=== PATIENT | female | born 1950 | race Caucasian/White ===

== ENCOUNTER 2016-11-12 08:53 | Day surgery (SDC) | payer MEDICARE ==
[~2016-11-12] VITALS: Ht 177.8 cm; Wt 100.7 kg
[~2016-11-12 08:53] MED LIST: AMOXICILLIN500 MG OR; AMOXICILLIN500 MG PO; ASPIRIN81 MG PO; ATENOLOL25 MG OR; ATENOLOL25 MG PO; AUGMENTIN500TAB PO; BENADRYL 50MG C50 MG PO; CALCIUM600 M2 PO; CEFTIN250 MG PO; CETIRIZINE10 MG PO; EPIPEN 2-PAK0.3 MG IM; FLONASE NASAL50 MCG; GLUCOSAMIN PO; HYDROCORTISO2.51 EX; LIPITOR10 M1 PO; MECLIZINE25 MG PO; MEDDOSEPAK PO; MUCINEX600 MG PO; MULTIVITAMIN PO; PEPCID20 MG PO; PHENERGAN12.5 MG/TA PO; PREMARIN VAG0.625 MG; PREMARIN0.625 M1 VA; PRILOSEC40 MG PO; SOLU-MEDROL125 MG IM; TESSALON PER100 MG PO; TRIAMCINOLON0.11 EX
[2016-11-12 10:44] VITALS: BP 127/69
== END 2016-11-12 10:52 | disposition home or self-care (01) ==
LOC: ENDO 08:53
PROVIDERS: ATTEND Internal Medicine Gastroenterology
PROC: 0DBN8ZX Excision of Sigmoid Colon, Via Natural or Artificial Opening Endoscopic, Diagnostic (ICD-10-PCS; principal; 2016-11-12)
PROC: 0DBL8ZX Excision of Transverse Colon, Via Natural or Artificial Opening Endoscopic, Diagnostic (ICD-10-PCS; 2016-11-12)
DX: Z12.11 Encounter for screening for malignant neoplasm of colon (principal); K64.4 Residual hemorrhoidal skin tags; K64.8 Other hemorrhoids; D12.3 Benign neoplasm of transverse colon; D12.5 Benign neoplasm of sigmoid colon; K57.30 Diverticulosis of large intestine without perforation or abscess without bleeding; K21.9 Gastro-esophageal reflux disease without esophagitis; R13.10 Dysphagia, unspecified; R10.13 Epigastric pain; E78.00 Pure hypercholesterolemia, unspecified; Z80.0 Family history of malignant neoplasm of digestive organs

== ENCOUNTER 2016-11-26 13:56 | Observation (INO) | payer MEDICARE ==
[~2016-11-26] VITALS: Ht 177.8 cm; Wt 101.4 kg
[2016-11-26 15:07] LABS: HEMATOCRIT 40.1 % (37.0-47.0); HEMOGLOBIN 13.3 g/dl (12.0-16.0); IMMATURE GRANULOCYTES 0.5 % (0.0-1.0); MEAN CELL VOLUME 90.1 fL CALC (80.0-100.0); MEAN CORPUSCULAR HGB 29.9 pG CALC (26.0-32.0); MEAN CORPUSCULAR HGB CONC 33.2 g/L CALC (32.0-36.0); NEUT# 4.85 thou/uL (2.00-7.15); RED BLOOD COUNT 4.45 mill/uL (4.20-5.60); RED CELL DISTRI WIDTH 13.2 % (11.5-15.5)
[2016-11-26 15:53] LABS: ALBUMIN 4.3 g/dL (3.2-5.0); ALKALINE PHOSPHATASE 117 u/l (38-126); ANION GAP 15 (6-22 (CALC)); BILIRUBIN, TOTAL 0.4 mg/dL (0.0-1.4); BUN 17 mg/dL (8-23); BUN/CREATININE RATIO 27 (12-20 (CALC)); CALCIUM 9.4 mg/dL (8.4-10.2); CARBON DIOXIDE 25 mmol/l (22-30); CHLORIDE 108 mmol/l (95-108); CREATININE 0.6 mg/dL (0.5-1.0); GFR > 60 ML/MIN (>=60 (CALC)); GFR FOR AFR.AMER. > 60 ML/MIN (>=60 (CALC)); GLUCOSE 129 mg/dL (82-115); POTASSIUM 4.1 mmol/l (3.5-5.1); SGOT/AST 105 u/l (9-36); SGPT/ALT 234 u/l (11-66); SODIUM 143 mmol/l (137-146)
[2016-11-26 16:03] LABS: MYOGLOBIN 20 ng/mL (0 - 62)
[2016-11-26 16:31] LABS: AMYLASE 77 u/l (30-110); LIPASE 70 u/l (23-300)
[2016-11-26 18:06] LABS: URINE BILIRUBIN - DIPSTICK NEGATIVE (NEGATIVE); URINE BLOOD DIPSTICK NEGATIVE (NEGATIVE); URINE CLARITY CLEAR; URINE COLOR YELLOW; URINE GLUCOSE - DIPSTICK NEGATIVE (NEGATIVE); URINE KETONE NEGATIVE (NEGATIVE); URINE LEUK ESTERASE NEGATIVE (NEGATIVE); URINE NITRITE - DIPSTICK NEGATIVE (Negative); URINE PROTEIN - DIPSTICK NEGATIVE (NEG-TRACE); URINE UROBILINOGEN - DIPSTICK 0.2 E.U./dL (0.2)
[2016-11-26] MEDS ORDERED: DUREZOL0.05 % OU ×2 (18:26→22:02)
[2016-11-26] MEDS ORDERED: ILEVRO0.3 % OU ×2 (18:27→22:02)
[2016-11-26] MEDS ORDERED: BESIVANCE0.6 % OU ×2 (18:27→22:03)
[2016-11-26 19:00] VITALS: BP 150/75
[2016-11-26 19:50] VITALS: BP 106/55
[2016-11-26] MEDS ORDERED: MULT VITAMIN PO (21:36)
[2016-11-26] MEDS ORDERED: ASPIRIN ADULT L81 M2 (21:51)
[2016-11-26] MEDS ORDERED: ATENOLOL25 MG PO (21:54)
[2016-11-26] MEDS ORDERED: CALCIUM600 M1 PO (21:54)
[2016-11-26] MEDS ORDERED: PRILOSEC20 MG PO (21:56)
[2016-11-26] MEDS ORDERED: LIPITOR10 M1 PO (21:57)
[2016-11-26] MEDS ORDERED: PREMARIN0.625 MG/G (21:58)
[2016-11-26] MEDS ORDERED: ALL DAY ALLERGY10 M1 (22:00)
[2016-11-27 04:16] VITALS: BP 132/71
[2016-11-27 06:42] LABS: HEMATOCRIT 39.7 % (37.0-47.0); HEMOGLOBIN 12.8 g/dl (12.0-16.0); IMMATURE GRANULOCYTES 0.5 % (0.0-1.0); MEAN CELL VOLUME 91.9 fL CALC (80.0-100.0); MEAN CORPUSCULAR HGB 29.6 pG CALC (26.0-32.0); MEAN CORPUSCULAR HGB CONC 32.2 g/L CALC (32.0-36.0); NEUT# 4.11 thou/uL (2.00-7.15); RED BLOOD COUNT 4.32 mill/uL (4.20-5.60); RED CELL DISTRI WIDTH 13.5 % (11.5-15.5)
[2016-11-27 06:59] LABS: ALKALINE PHOSPHATASE 104 u/l (38-126); AMYLASE 47 u/l (30-110); ANION GAP 13 (6-22 (CALC)); BILIRUBIN, TOTAL 0.4 mg/dL (0.0-1.4); BUN 15 mg/dL (8-23); BUN/CREATININE RATIO 20 (12-20 (CALC)); CALCIUM 9.2 mg/dL (8.4-10.2); CARBON DIOXIDE 29 mmol/l (22-30); CHLORIDE 107 mmol/l (95-108); CREATININE 0.8 mg/dL (0.5-1.0); GFR > 60 ML/MIN (>=60 (CALC)); GFR FOR AFR.AMER. > 60 ML/MIN (>=60 (CALC)); GLUCOSE 91 mg/dL (82-115); POTASSIUM 4.4 mmol/l (3.5-5.1); SGOT/AST 67 u/l (9-36); SGPT/ALT 193 u/l (11-66); SODIUM 145 mmol/l (137-146); TOTAL PROTEIN 6.3 g/dL (6.3-8.2)
[2016-11-27 07:28] VITALS: BP 115/68
[2016-11-27 07:35] VITALS: BP 114/73
[2016-11-27 11:30] VITALS: BP 126/54
[2016-11-27 15:38] VITALS: BP 140/83
[2016-11-27 19:35] VITALS: BP 114/73
[2016-11-28 00:30] VITALS: BP 99/56
[2016-11-28 04:09] VITALS: BP 96/60
[2016-11-28 04:27] LABS: HEMATOCRIT 39.7 % (37.0-47.0); IMMATURE GRANULOCYTES 0.6 % (0.0-1.0); MEAN CELL VOLUME 91.3 fL CALC (80.0-100.0); MEAN CORPUSCULAR HGB 29.9 pG CALC (26.0-32.0); MEAN CORPUSCULAR HGB CONC 32.7 g/L CALC (32.0-36.0); NEUT# 3.96 thou/uL (2.00-7.15); RED BLOOD COUNT 4.35 mill/uL (4.20-5.60); RED CELL DISTRI WIDTH 13.3 % (11.5-15.5)
[2016-11-28 04:44] LABS: ALBUMIN 3.9 g/dL (3.2-5.0); ALKALINE PHOSPHATASE 101 u/l (38-126); ANION GAP 15 (6-22 (CALC)); BILIRUBIN, TOTAL 0.4 mg/dL (0.0-1.4); BUN 15 mg/dL (8-23); BUN/CREATININE RATIO 21 (12-20 (CALC)); CALCIUM 9.2 mg/dL (8.4-10.2); CARBON DIOXIDE 28 mmol/l (22-30); CHLORIDE 107 mmol/l (95-108); CREATININE 0.7 mg/dL (0.5-1.0); GFR > 60 ML/MIN (>=60 (CALC)); GFR FOR AFR.AMER. > 60 ML/MIN (>=60 (CALC)); GLUCOSE 92 mg/dL (82-115); POTASSIUM 4.2 mmol/l (3.5-5.1); SGOT/AST 45 u/l (9-36); SGPT/ALT 161 u/l (11-66); SODIUM 145 mmol/l (137-146); TOTAL PROTEIN 6.4 g/dL (6.3-8.2)
[2016-11-28] MEDS ORDERED: PHENERGAN25 MG/TAB PO ×2 (08:48→09:27)
[2016-11-28] MEDS ORDERED: ANTIVERT PO (08:48)
[2016-11-28] MEDS ORDERED: ANTIVERT12.5 MG PO (09:27)
== END 2016-11-28 08:52 | disposition home or self-care (01) ==
LOC: ENPENDDIS → ED 13:56 → ED-I 16:29 → ED 17:14 → MS2 17:15
PROVIDERS: Emergency Medicine; ADMIT Internal Medicine Geriatric Medicine; ATTEND Internal Medicine Geriatric Medicine
DX: R42 Dizziness and giddiness (principal); H93.12 Tinnitus, left ear; I10 Essential (primary) hypertension; E78.5 Hyperlipidemia, unspecified; K21.9 Gastro-esophageal reflux disease without esophagitis; K80.20 Calculus of gallbladder without cholecystitis without obstruction; M19.90 Unspecified osteoarthritis, unspecified site; Z96.1 Presence of intraocular lens; Z98.42 Cataract extraction status, left eye
CPT/HCPCS: G0378

== ENCOUNTER 2017-10-28 17:53 | Emergency (ER) | payer MEDICARE ==
[~2017-10-28] VITALS: Ht 177.8 cm; Wt 89.0 kg
[~2017-10-28 17:53] MED LIST changes: +ALL DAY ALLERGY10 M1; +ANTIVERT PO; +ANTIVERT12.5 MG PO; +ASPIRIN ADULT L81 M2; +BESIVANCE0.6 % OU; +CALCIUM600 M1 PO; +DUREZOL0.05 % OU; +ILEVRO0.3 % OU; +MULT VITAMIN PO; +PHENERGAN25 MG/TAB PO; +PREMARIN0.625 MG/G; +PRILOSEC20 MG PO
[2017-10-28] MEDS ORDERED: ZOFRAN ODT4 MG PO (18:16)
[2017-10-28] MEDS ORDERED: ANTIVERT PO (18:16)
[2017-10-28] MEDS ORDERED: VALIUM5 MG PO (18:16)
[2017-10-28] MEDS ORDERED: RA OMEPRAZOLE20 MG PO (18:21)
[2017-10-28 18:24] VITALS: BP 132/82
== END 2017-10-28 18:31 | disposition home or self-care (01) ==
LOC: ED 17:53
DX: R42 Dizziness and giddiness (principal); I10 Essential (primary) hypertension

== ENCOUNTER → 2018-08-05 | Outpatient (REF) | payer MEDICARE ==
[~2018-08-05] MED LIST changes: +RA OMEPRAZOLE20 MG PO; +VALIUM5 MG PO; +ZOFRAN ODT4 MG PO
[2018-08-05 08:44] LABS: HEMATOCRIT 39.8 % (37.0-47.0); HEMOGLOBIN 12.8 g/dl (12.0-16.0); IMMATURE GRANULOCYTES 0.2 % (0.0-5.0); MEAN CORPUSCULAR HGB 29.9 pG CALC (26.0-32.0); MEAN CORPUSCULAR HGB CONC 32.2 g/L CALC (32.0-36.0); NEUT# 2.53 thou/uL (2.00-7.15); RED BLOOD COUNT 4.28 mill/uL (4.20-5.60); RED CELL DISTRI WIDTH 13.2 % (11.5-15.5)
[2018-08-05 08:53] LABS: ALBUMIN 4.2 g/dL (3.2-5.0); ALKALINE PHOSPHATASE 90 u/l (38-126); ANION GAP 13 (6-22 (CALC)); BILIRUBIN, TOTAL 0.5 mg/dL (0.0-1.4); BUN 20 mg/dL (8-23); BUN/CREATININE RATIO 26 (12-20 (CALC)); CARBON DIOXIDE 28 mmol/l (22-30); CHLORIDE 106 mmol/l (95-108); CREATININE 0.7 mg/dL (0.5-1.0); GFR > 60 ML/MIN (>=60 (CALC)); GFR FOR AFR.AMER. > 60 ML/MIN (>=60 (CALC)); POTASSIUM 4.5 mmol/l (3.5-5.1); SGOT/AST 26 u/l (9-36); SODIUM 143 mmol/l (137-146); TOTAL PROTEIN 6.4 g/dL (6.3-8.2)
== END | disposition home or self-care (01) ==
LOC: LAB 08:02
PROVIDERS: ATTEND Internal Medicine Geriatric Medicine
DX: R10.9 Unspecified abdominal pain (principal)

== ENCOUNTER → 2018-08-07 | Outpatient (REF) | payer MEDICARE | END | disposition home or self-care (01) | LOC: CT 12:17 | PROVIDERS: ATTEND Internal Medicine Geriatric Medicine | DX: R10.9 Unspecified abdominal pain (principal) ==

== ENCOUNTER 2020-07-03 17:21 | Observation (INO) | payer MEDICARE ==
[~2020-07-03] VITALS: Ht 175.3 cm; Wt 100.0 kg
[2020-07-03 18:25] LABS: HEMATOCRIT 42.5 % (37.0-47.0); HEMOGLOBIN 13.4 g/dl (12.0-16.0); IMMATURE GRANULOCYTES 0.3 % (0.0-5.0); MEAN CELL VOLUME 92.8 fL CALC (80.0-100.0); MEAN CORPUSCULAR HGB 29.3 pG CALC (26.0-32.0); MEAN CORPUSCULAR HGB CONC 31.5 g/dL CAL (32.0-36.0); NEUT# 4.28 thou/uL (2.00-7.15); RED BLOOD COUNT 4.58 mill/uL (4.20-5.60); RED CELL DISTRI WIDTH 13.4 % (11.5-15.5)
[2020-07-03 18:44] LABS: ALBUMIN 4.7 g/dL (3.2-5.0); ALKALINE PHOSPHATASE 102 u/l (38-126); BILIRUBIN, TOTAL 0.4 mg/dL (0.0-1.4); BUN 16 mg/dL (8-23); BUN/CREATININE RATIO 20 (12-20 (CALC)); CARBON DIOXIDE 28 mmol/l (22-30); CHLORIDE 103 mmol/l (95-108); CREATININE 0.8 mg/dL (0.5-1.0); GFR > 60 ML/MIN (>=60 (CALC)); GFR FOR AFR.AMER. > 60 ML/MIN (>=60 (CALC)); SGOT/AST 45 u/l (9-36); SODIUM 140 mmol/l (137-146); TOTAL PROTEIN 7.4 g/dL (6.3-8.2)
[2020-07-03 18:48] LABS: ANION GAP 13 (6-22 (CALC)); POTASSIUM 3.6 mmol/l (3.5-5.1)
[2020-07-03 18:49] LABS: ACT PARTIAL THROMBO TIME 23.4 SECONDS (20.0-32.5); INTERNATIONAL NORMALIZED RATIO 0.9 RATIO (0.7-1.3); PROTHROMBIN TIME 9.4 SECONDS (9.0-12.5)
[2020-07-03 18:56] LABS: MYOGLOBIN 56 ng/mL (0 - 62)
[2020-07-03 18:59] LABS: D-DIMER 0.47 mg/L (0.19-0.60)
[2020-07-03 19:09] LABS: URINE BILIRUBIN - DIPSTICK NEGATIVE (NEGATIVE); URINE BLOOD DIPSTICK NEGATIVE (NEGATIVE); URINE COLOR YELLOW; URINE GLUCOSE - DIPSTICK NEGATIVE (NEGATIVE); URINE KETONE NEGATIVE (NEGATIVE); URINE LEUK ESTERASE NEGATIVE (NEGATIVE); URINE NITRITE - DIPSTICK NEGATIVE (Negative); URINE PH 6.5 (4.5-8.0); URINE PROTEIN - DIPSTICK NEGATIVE (NEG-TRACE); URINE SPECIFIC GRAVITY <=1.005; URINE UROBILINOGEN - DIPSTICK 0.2 E.U./dL (0.2)
[2020-07-03] MEDS ORDERED: GLUCOSAMINE & C1 CAP PO (19:15)
[2020-07-03 20:30] VITALS: BP 140/78
[2020-07-03 21:00] VITALS: BP 112/59
[2020-07-03 22:00] VITALS: BP 110/50
[2020-07-03 23:00] VITALS: BP 109/51
[2020-07-04] VITALS (22 sets, daily range): BP systolic 91–174; BP diastolic 39–97
[2020-07-04 07:11] LABS: HEMATOCRIT 36.8 % (37.0-47.0); HEMOGLOBIN 11.8 g/dl (12.0-16.0); IMMATURE GRANULOCYTES 0.4 % (0.0-5.0); MEAN CELL VOLUME 93.9 fL CALC (80.0-100.0); MEAN CORPUSCULAR HGB 30.1 pG CALC (26.0-32.0); MEAN CORPUSCULAR HGB CONC 32.1 g/dL CAL (32.0-36.0); NEUT# 3.78 thou/uL (2.00-7.15); RED BLOOD COUNT 3.92 mill/uL (4.20-5.60); RED CELL DISTRI WIDTH 13.6 % (11.5-15.5)
[2020-07-04 07:36] LABS: ALKALINE PHOSPHATASE 79 u/l (38-126); ANION GAP 7 (6-22 (CALC)); BILIRUBIN, TOTAL 0.5 mg/dL (0.0-1.4); BUN 18 mg/dL (8-23); BUN/CREATININE RATIO 24 (12-20 (CALC)); CALCULATED LDLCHOLESTEROL 78 mg/dL (62-129 (CALC)); CARBON DIOXIDE 27 mmol/l (22-30); CHLORIDE 108 mmol/l (95-108); CHOLESTEROL HDL RATIO 2.4 (<4.4 (CALC)); CREATININE 0.8 mg/dL (0.5-1.0); GFR > 60 ML/MIN (>=60 (CALC)); GFR FOR AFR.AMER. > 60 ML/MIN (>=60 (CALC)); HDL CHOLESTEROL 63 mg/dL (>=40); POTASSIUM 4.1 mmol/l (3.5-5.1); SGOT/AST 30 u/l (9-36); SODIUM 138 mmol/l (137-146); TOTAL CHOLESTEROL 151 mg/dl (0-199); TOTAL TRIGLYCERIDES 54 mg/dl (30-149); VLDL CHOLESTROL 11 mg/dl (0-48 (CALC))
[2020-07-04 07:38] LABS: ALBUMIN 3.5 g/dL (3.2-5.0); TOTAL PROTEIN 5.9 g/dL (6.3-8.2)
[2020-07-05] VITALS (7 sets, daily range): BP systolic 127–156; BP diastolic 53–76
[2020-07-05] MEDS ORDERED: AMLODIPINE BESYL5 MG PO (08:21)
[2020-07-05] MEDS ORDERED: TOPROL XL25 M1 PO (08:21)
[2020-07-05] MEDS ORDERED: XARELTO20 MG PO (08:40)
== END 2020-07-05 11:20 | disposition home or self-care (01) ==
LOC: ED 17:21 → ED-I 19:13 → ICU 19:14 → ED 19:14 → ICU 19:14
PROVIDERS: Nurse Practitioner; ADMIT Internal Medicine; ATTEND Internal Medicine
DX: I48.91 Unspecified atrial fibrillation (principal); I10 Essential (primary) hypertension; E78.5 Hyperlipidemia, unspecified; M79.671 Pain in right foot; R25.2 Cramp and spasm; Z20.822 Contact with and (suspected) exposure to COVID-19
CPT/HCPCS: J1650

== ENCOUNTER 2020-08-09 13:36 | Inpatient (IN) | payer MEDICARE ==
[~2020-08-09] VITALS: Ht 175.3 cm; Wt 98.0 kg
[~2020-08-09 13:36] MED LIST changes: +AMLODIPINE BESYL5 MG PO; +GLUCOSAMINE & C1 CAP PO; +TOPROL XL25 M1 PO; +XARELTO20 MG PO
--- NOTE | 2020-08-09 15:05 | NUR ---
ERIKA AMBULATED TO [facility] AWAITIG ROOM ASSIGNMENT SANDI ACKNOWLEDGED WAIT TIME AND MD INFORMED OF PATIENT STATUS
--- NOTE | 2020-08-09 16:40 | NUR ---
PT AMBUALTED TO ROOM WITH STEADY GAIT
[2020-08-09 17:19] LABS: HEMATOCRIT 39.6 % (37.0-47.0); HEMOGLOBIN 12.7 g/dl (12.0-16.0); IMMATURE GRANULOCYTES 0.9 % (0.0-5.0); MEAN CELL VOLUME 92.1 fL CALC (80.0-100.0); MEAN CORPUSCULAR HGB 29.5 pG CALC (26.0-32.0); MEAN CORPUSCULAR HGB CONC 32.1 g/dL CAL (32.0-36.0); NEUT# 2.67 thou/uL (2.00-7.15); RED BLOOD COUNT 4.3 mill/uL (4.20-5.60); RED CELL DISTRI WIDTH 13.2 % (11.5-15.5)
--- NOTE | 2020-08-09 17:40 | NUR ---
PT WAS GIVEN CARDIZEM AND HEARTRATE CONTINUED TO BE ELEVATED AND IRREGULAR. NOTIFIED AND SHE STATES PENDING DRIP ORDER
[2020-08-09 17:42] LABS: ALBUMIN 3.9 g/dL (3.2-5.0); ALKALINE PHOSPHATASE 100 u/l (38-126); ANION GAP 12 (6-22 (CALC)); BILIRUBIN, TOTAL 0.5 mg/dL (0.0-1.4); BUN 15 mg/dL (8-23); BUN/CREATININE RATIO 19 (12-20 (CALC)); CARBON DIOXIDE 25 mmol/l (22-30); CHLORIDE 104 mmol/l (95-108); CREATININE 0.8 mg/dL (0.5-1.0); GFR > 60 ML/MIN (>=60 (CALC)); GFR FOR AFR.AMER. > 60 ML/MIN (>=60 (CALC)); POTASSIUM 3.6 mmol/l (3.5-5.1); SGOT/AST 34 u/l (9-36); SODIUM 136 mmol/l (137-146); TOTAL PROTEIN 6.6 g/dL (6.3-8.2)
[2020-08-09 17:44] LABS: ACT PARTIAL THROMBO TIME 28.1 SECONDS (20.0-32.5); INTERNATIONAL NORMALIZED RATIO 1.1 RATIO (0.7-1.3); PROTHROMBIN TIME 11.3 SECONDS (9.0-12.5)
--- NOTE | 2020-08-09 18:44 | NUR ---
MD AT BEDSIDE TO DISCUSS RESULTS AND PLAN OF CARE.
--- NOTE | 2020-08-09 18:58 | NUR ---
REPORT RECEIVED FROM FARSHAD JEAN.
--- NOTE | 2020-08-09 19:10 | NUR ---
INTRODUCED SELF TO PT. CARDIZEM GTT INFUSING @ 15MG/HR WITHOUT DIFFICULTY. CARDIAC RHYTHM SHOWING AFIB 130S.
--- NOTE | 2020-08-09 19:38 | NUR ---
PT MEDICATED WITH LOPRESSOR IV PER EDP ORDER. HR RANGING FROM 130-140S AFIB. TOLERATED MEDICATION ADMINISTRATION WELL. ADVISED OF CONT WAIT FOR ADMIT TO ICU. VERABLIZED UNDERSTANDING. DENIES ANY NEEDS. FLOW NURSE IN PLACE.
--- NOTE | 2020-08-09 20:00 | NUR ---
PT ASSISTED TO BSC WITH 1000 ML OF YELLOW URINE PRODUCED.
--- NOTE | 2020-08-09 20:25 | NUR ---
Admission Note Report Given to: MAIKEL RN Transported by: Wheelchair X Stretcher Transported with: X Nurse Transporter X Patent IV O2 X Multicraft Operator Location: X ICU MS2 PT REPORT PROVIDED TO MAIKEL JEAN. TRANSPORTED TO ICU VIA STRETCHER IN WITH FLAP PRESSER IN PLACE.
[2020-08-09 20:40] LABS: URINE BILIRUBIN - DIPSTICK NEGATIVE (NEGATIVE); URINE BLOOD DIPSTICK NEGATIVE (NEGATIVE); URINE COLOR YELLOW; URINE GLUCOSE - DIPSTICK NEGATIVE (NEGATIVE); URINE KETONE NEGATIVE (NEGATIVE); URINE LEUK ESTERASE NEGATIVE (NEGATIVE); URINE NITRITE - DIPSTICK NEGATIVE (Negative); URINE PH 5.5 (4.5-8.0); URINE PROTEIN - DIPSTICK NEGATIVE (NEG-TRACE); URINE SPECIFIC GRAVITY <=1.005; URINE UROBILINOGEN - DIPSTICK 0.2 E.U./dL (0.2)
[2020-08-09 20:45] VITALS: BP 123/74
--- NOTE | 2020-08-09 20:45 | NUR ---
RECEIVED INTO ICU BED 1 AT 2034. PATIENT ARRIVED FROM ER VIA STRETCHER, AMBULATED FROM STRETCHER TO BED WITH STABLE STANCE AND STEADY GAIT. PLACED ON CHIEF ADMINISTRATIVE OFFICER SHOWING AFIB, VARIABLE HR. RESP NON-LABORED. LUNGS CLEAR. NO PERIPHERAL EDEMA, PULSES INTACT. IV IN RAC WITH CARDIAZEM GTT INFUSING AT 15 MG/HR AND NS AT 20 ML/HR. SALINE LOCK INTACT IN LH, BOTH IV SITES BENIGN. DISCUSSED PLAN OF CARE. DENIES NEEDS AT THIS TIME. CALL GOMES IN REACH.
[2020-08-09 21:00] VITALS: BP 95/62
[2020-08-09 21:15] VITALS: BP 93/53
[2020-08-09 21:30] VITALS: BP 100/50
--- NOTE | 2020-08-09 21:35 | NUR ---
DR GONSALO BAPTISTE IN FOR CONDITION UPDATE.
[2020-08-09 22:00] VITALS: BP 99/62
--- NOTE | 2020-08-09 22:00 | NUR ---
VSS. CONTINUES IN AFIB WITH VARIABLE HR, 90'S-110.
[2020-08-09 23:00] VITALS: BP 119/53
[2020-08-10] VITALS (22 sets, daily range): BP systolic 85–142; BP diastolic 44–67
--- NOTE | 2020-08-10 | NUR ---
SLEEPING. VSS. CARDIZEM GTT CONTINUES TO INFUSE AT 15 MG/HR. REMAINS IN AFIB, HR VARIABLE 90'S-110'S.
--- NOTE | 2020-08-10 02:00 | NUR ---
RESTING WITH EYES CLSOED. RESP NON-LABORED. VSS. CARDIZEM GTT INFUSING AT 15 MG/HR. CONTNIUES IN AFIB ON MONITOR.
--- NOTE | 2020-08-10 04:00 | NUR ---
NO CHANGES TO REPORT. VSS. CONTINUES IN AFIB.
--- NOTE | 2020-08-10 06:00 | NUR ---
REMAINS IN AFIB. CARDIZEM GTT CONTINUES AT 15 MG/HR. IV LOPRESSOR HELD FOR BP 96/52.
--- NOTE | 2020-08-10 07:00 | NUR ---
pt awake in bed; no apparent distress noted; pt offers no complaints other than feeling "drained"; denies pain; no n/v noted at this time; assessment completed; pt alert and oriented; resp even and unlabored; lungs clear; skin color wnl; ra; hr irreg; strong pulses; no edema noted; afib on monitor; abd soft with bs present; no bm noted per ticket writer; pt admits to having "a bug" that has caused diarrhea (currently no diarhhea); pt admits to voiding without pain or burning; no urine to inspect at this time; bsc; #18 patent to rac with cardizem gtt at 15 mg/hr and ns infusing without complication; #22 to saline locked; no redness or edema noted at sites; plan of care/ am meds explained; call light within reach; will continue to monitor
--- NOTE | 2020-08-10 08:00 | NUR ---
awake in bed; offers no complaints; iv intact and patent; cardizem gtt cont at 15 mg/hr; afib on monitor; call light within reach; will continue to monitor
--- NOTE | 2020-08-10 10:20 | NUR ---
awake in bed; offers no complaints; iv intact; afib on monitor; call light within reach; will continue to monitor
--- NOTE | 2020-08-10 11:11 | NUR ---
keno writer spoke with Dr Steinberg for clarification in regards to Torpol, Lopressor scheduled and Cardizem; orders received to administer Toprol and wean cardizem gtt
--- NOTE | 2020-08-10 11:13 | NUR ---
Dr Jeff present at bedside to assess pt and discuss plan of care
--- NOTE | 2020-08-10 12:20 | NUR ---
pt awake in bed; afib on monitor; iv intact and patent; cardizem gtt at 15 mg/hr; pt offers no complaints; call light within reach; will continue to monitor
--- NOTE | 2020-08-10 14:03 | NUR ---
awake in bed; offers no complaints; iv intact and patent; afib on monitor; call light within reach; will continue to monitor
--- NOTE | 2020-08-10 16:05 | NUR ---
pt resting in bed; no apparent distress noted; pt offers no complaints; iv intact and patent; no redness or edema noted at site; afib on monitor; cardizem gtt cont at 15mg/hr; call light within reach; will continue to monitor
--- NOTE | 2020-08-10 18:14 | NUR ---
pt awake sitting on the side of bed eating dinner; no apparent distress noted; pt offers no complaints; iv intact and patent; cardizem gtt cont at 15mg/hr; no redness or edema noted at site; call light within reach
--- NOTE | 2020-08-10 19:20 | NUR ---
RESTING IN BED WTACHING TV. DENIES ANY PAIN OR DISCOMFORTS. RESP NON-LABORED. LUNGS CLEAR. NO PERIPHERAL EDEMA, PULSES INTACT. IV IN RAC WITH NS INFUSING AT 20 ML/HR AND CARDIZEM GTT DECREASED AT THIS TIME TO 10 MG/HR. WEB MARKETING ASSISTANT CONTINUES IN AFIB, HR 80'S-90'S. DISCUSSED PLAN OF CARE. ADAM SALEH AT THIS TIME. CALL GOMES IN REACH.
--- NOTE | 2020-08-10 20:36 | NUR ---
MEDICATED WITH XANAX ORDERED FOR ANXIETY.
--- NOTE | 2020-08-10 22:41 | NUR ---
TYLENOL 650 MG PO GIVEN FOR C/O LEGS ACHING.
[2020-08-11] VITALS (25 sets, daily range): BP systolic 86–119; BP diastolic 40–78
--- NOTE | 2020-08-11 | NUR ---
RESTING WITH EYES CLOSED. RESP NON-LABORED. VSS.
--- NOTE | 2020-08-11 02:00 | NUR ---
SLEEPS SOUNDLY. VSS. AFIB ON MONITOR.
--- NOTE | 2020-08-11 04:00 | NUR ---
REMAINS IN AFIB. VSS. RESP NON-LABORED.
--- NOTE | 2020-08-11 05:00 | NUR ---
CONTINUES IN AFIB ON MONITOR, HR 70'S-80'S. CARDIZEM GTT DECREASED TO 5 MG/HR.
--- NOTE | 2020-08-11 05:54 | NUR ---
NO CHANGES TO REPORT. VSS. AFIB ON MONITOR. CARDIZEM GTT INFUSING AT 5 MG/HR.
--- NOTE | 2020-08-11 06:45 | NUR ---
REPORT RECEIVED FROM MAIKEL JEAN. CARE ASSUMED.
--- NOTE | 2020-08-11 07:00 | NUR ---
PT RESTING IN BED AWAKE. PT IS ALERT AND ORIENTED X3. SHIFT ASSESSMENT COMPLETED AT THIS TIME. IV PATENT X2. BP 99/48. TURNED CARDIZEM FROM 5MG TO OFF FOR HYPOTENSION. AM MEDS GIVEN PER AUG. PT REMAINS IN AFIB ON MONITOR. PT THEN ASSISTED UP TO RECLINER AT BEDSIDE. CALL LIGHT IN REACH WILL CONTINUE TO MONITOR.
--- NOTE | 2020-08-11 07:15 | NUR ---
DR HILL NOTIFIED OF CARDIOLOGY CONSULT
--- NOTE | 2020-08-11 08:48 | NUR ---
DR BRUSH AT BEDSIDE.
--- NOTE | 2020-08-11 10:00 | NUR ---
PT SEATED UP IN RECLINER. RESP ARE EVEN AND UNLABORED. NO DISTRESS NOTED. CALL LIGHT IN REACH. WILL CONTINUE TO MONITOR.
--- NOTE | 2020-08-11 12:15 | NUR ---
PT SITTING UP IN BED EATING LUNCH AT THIS TIME. NO DISTRESS NOTED. CALL LIGHT IN REACH. WILL CONTINUE TO MONITOR.
--- NOTE | 2020-08-11 12:30 | NUR ---
LAB AT BEDSIDE AT THIS TIME
--- NOTE | 2020-08-11 12:40 | NUR ---
JORGE BOYER APRN AT BEDSIDE AT THIS TIME
[2020-08-11 13:13] LABS: ANION GAP 12 (6-22 (CALC)); BUN 14 mg/dL (8-23); BUN/CREATININE RATIO 20 (12-20 (CALC)); CARBON DIOXIDE 24 mmol/l (22-30); CHLORIDE 107 mmol/l (95-108); CREATININE 0.7 mg/dL (0.5-1.0); GFR > 60 ML/MIN (>=60 (CALC)); GFR FOR AFR.AMER. > 60 ML/MIN (>=60 (CALC)); MAGNESIUM 1.8 mg/dL (1.6-2.3); POTASSIUM 4.1 mmol/l (3.5-5.1); SODIUM 139 mmol/l (137-146)
--- NOTE | 2020-08-11 13:55 | NUR ---
PT MEDICATION WITH DIGOXIN PO PER AUG. MEDICATION EXPLAINED. PT VERBALIZED UNDERSTANDING
--- NOTE | 2020-08-11 16:30 | NUR ---
ASSUMED CARE. PT RESTING IN SEMI FOWLERS POSITION. RESPIRATIONS ARE EVEN AND UNLABORED ON ROOM AIR, NO DISTRESS NOTED. AFIB 109 PER CARDIAC MONITORING. PT DENIES OF ANY PAINS OR DISCOMFORTS AT THIS TIME. ALL SAFETY PRECAUTIONS ARE IN PLACE WITH CALL LIGHT IN REACH . WILL CONTINUE TO MONITOR.
--- NOTE | 2020-08-11 18:15 | NUR ---
PT RESTING IN HIGH FOLWERS POSITION EATING DINNER. REPSIRATIONS ARE EVEN AND UNLABORED ON ROOM AIR. AFIB PER CARDIAC MONITORING. PT DENIES OF ANY PAINS OR DISCOMFORTS. ALL SAFETY PRECAUTIONS ARE IN PLACE WITH CALL LIGHT IN REACH. WILL CONTINUE TO MONITOR.
--- NOTE | 2020-08-11 19:31 | NUR ---
RECEIEVED REPORT FOR THIS PT AND IN BED WITH EYES OPEN AND ABLE TO MAKE NEEDS KNOWN.. ATRIAL FIBRILLATION NOTED UP THE 140'S. PT DENIES SOB AND DENIES PAIN OR DISCOMFORT. CONTINENT OF B/B. WILL NOTIFY MD OF ABNORMAL HEART RATE/RYHTHM. WILL CONTINUR TO OBSERVE
[2020-08-12] VITALS (11 sets, daily range): BP systolic 93–127; BP diastolic 47–64
--- NOTE | 2020-08-12 | NUR ---
PT IN BED WITH EYES CLOSED. NO S/S OF DISTRES NOTED. RESPIRATIN EVEN AND NON LABORED. DENIES PAIN OR DISCOMFORT. UP TO TOILET WITH NO ASSIST NEEDED. CALL LIGHT WITHIN REACH. WILL CONTINUE TO OBSERVE
--- NOTE | 2020-08-12 05:11 | NUR ---
PT IN BED WITH EYES CLOSED. CONTINUES WITH ATRIAL FIB NOTED WITH NO COMPLICATIONS NOTED. TOLERATING FLUIDS WELL. UP TO TOILET WITH NO ASSIST NEEDED. CALL IGHT IS WITHIN REACH ANDBED IN LOW POSITIO. WILL CONTINUE TO OBSERVE
--- NOTE | 2020-08-12 06:45 | NUR ---
REPORT RECEIVED FROM JANE JEAN. CARE ASSUMED.
--- NOTE | 2020-08-12 07:00 | NUR ---
PT RESTING IN BED AWAKE. PT IS ALERT AND ORIENTED X3. SHIFT ASSESSMENT COMPLETED AT THIS TIME. IV PATENT X2. CALL LIGHT IN REACH. WILL CONTINUE TO MONITOR.
--- NOTE | 2020-08-12 07:30 | NUR ---
PT CONVERTED BACK TO SINUS RHYTHM ON MONITOR AT THIS TIME.
--- NOTE | 2020-08-12 09:20 | NUR ---
PT RESTING IN BED AT THIS TIME. NO DISTRESS NOTED. VSS ON MONITOR. CALLLIGHT IN REACH. WILL CONTINUE TO MONITOR.
--- NOTE | 2020-08-12 10:06 | NUR ---
DR BRUSH AT BEDSIDE AT THIS TIME.
--- NOTE | 2020-08-12 10:49 | NUR ---
VIDEOTAPE RECORDING ENGINEER AT BEDSIDE AT THIS TIME.
--- NOTE | 2020-08-12 11:46 | NUR ---
PT SET UP FOR NOON MEAL AT THIS TIME. NO DISTRESS NOTED. CALL LIGHT IN REACH. WILL CONTINUE TO MONITOR.
[2020-08-12] MEDS ORDERED: TOPROL XL50 MG PO (13:13)
[2020-08-12] MEDS ORDERED: ROPINIROLE HCL0.5 MG PO (13:14)
[2020-08-12] MEDS ORDERED: DIGOX250 MCG PO (13:15)
--- NOTE | 2020-08-12 14:04 | NUR ---
INTO ROOM TO LET PT KNOW PLAN OF DC. PT VERBALIZED UNDERSTANDING.
--- NOTE | 2020-08-12 14:10 | NUR ---
#20G RAC AND #22G IN LH REMOVED WITH CATHATER STILL INTACT. PT TOLERATED WELL.
--- NOTE | 2020-08-12 14:55 | NUR ---
DISCHARGE INSTRUCTIONS REVIEWED WITH PT. PT VERBALIZED UNDERSTANDING. SPOUSE BRINGING CLOTHES.
--- NOTE | 2020-08-12 15:10 | NUR ---
Discharge instructions given. Patient verbalizes understanding of same. Discharged in stable condition via Wheelchair to Home with family. All belongings sent with pt.
== END 2020-08-12 15:10 | disposition home or self-care (01) | DRG 310 ==
LOC: ED 13:36 → ED-I 17:30 → ED 18:35 → ICU 18:36
PROVIDERS: Nurse Practitioner Family; Student in an Organized Health Care Education/Training Program; ADMIT Internal Medicine; ATTEND Internal Medicine
DX: I48.19 Other persistent atrial fibrillation (principal); I10 Essential (primary) hypertension; E78.5 Hyperlipidemia, unspecified; G47.30 Sleep apnea, unspecified; F41.9 Anxiety disorder, unspecified; G25.81 Restless legs syndrome; Z79.01 Long term (current) use of anticoagulants; Z20.822 Contact with and (suspected) exposure to COVID-19

== ENCOUNTER 2021-10-15 07:23 | Day surgery (SDC) | payer MEDICARE ==
[~2021-10-15] VITALS: Ht 175.3 cm; Wt 100.0 kg
[~2021-10-15 07:23] MED LIST changes: +BIOTIN PO; +DIGOX250 MCG PO; +METOPROLOL SUCC50 MG PO; +NORVASC5 M1 PO; +ROPINIROLE HCL0.5 MG PO; +ROPINIROLE0.25 MG PO; +TOPROL XL50 MG PO; +[UNRECOGNIZED DRUG - OTHER] PO; +[UNRECOGNIZED DRUG - OTHER] VA
[2021-10-15] MEDS ORDERED: PERCOCET 5/325M1 TAB PO (09:32)
[2021-10-15 11:05] VITALS: BP 127/63
== END 2021-10-15 11:52 | disposition home or self-care (01) ==
LOC: ENDO 07:23 → ORM 08:55 → ENDO 09:15 → ORM 11:00 → ENDO 11:30
PROVIDERS: ATTEND Surgery
PROC: 0DJD8ZZ Inspection of Lower Intestinal Tract, Via Natural or Artificial Opening Endoscopic (ICD-10-PCS; principal; 2021-10-15)
PROC: 0FT44ZZ Resection of Gallbladder, Percutaneous Endoscopic Approach (ICD-10-PCS; 2021-10-15)
DX: Z12.11 Encounter for screening for malignant neoplasm of colon (principal); K80.10 Calculus of gallbladder with chronic cholecystitis without obstruction; I10 Essential (primary) hypertension; I48.91 Unspecified atrial fibrillation; Z80.0 Family history of malignant neoplasm of digestive organs
CPT/HCPCS: J0131; J1610; Q9967